=== PATIENT | male | born 1995 | race Two or more races ===

== ENCOUNTER 2021-08-27 20:44 | Emergency (ER) | payer OTHER ==
[~2021-08-27] VITALS: Ht 172.7 cm; Wt 71.2 kg
== END 2021-08-27 23:53 | disposition home or self-care (01) ==
LOC: ER 20:44
DX: B34.8 Other viral infections of unspecified site (principal)

== ENCOUNTER 2021-08-30 21:00 | Emergency (ER) | payer OTHER ==
[~2021-08-30] VITALS: Ht 182.9 cm; Wt 71.2 kg
== END 2021-08-30 22:26 | disposition home or self-care (01) ==
LOC: ER 21:00
DX: A90 Dengue fever [classical dengue] (principal); B34.9 Viral infection, unspecified; J02.9 Acute pharyngitis, unspecified; Z03.818 Encounter for observation for suspected exposure to other biological agents ruled out

== ENCOUNTER → 2021-08-30 | Emergency (ER) | payer OTHER | END | disposition left against medical advice (07) | LOC: ER 20:55 | DX: Z53.20 Procedure and treatment not carried out because of patient's decision for unspecified reasons (principal) ==

== ENCOUNTER 2022-03-25 16:53 | Emergency (ER) | payer OTHER | END 2022-03-25 21:36 | disposition home or self-care (01) | LOC: ER 16:53 | DX: H60.93 Unspecified otitis externa, bilateral (principal) ==

== ENCOUNTER → 2022-05-16 | Emergency (ER) | payer OTHER ==
[~2022-05-16] VITALS: Ht 182.9 cm; Wt 67.6 kg
== END | disposition home or self-care (01) ==
LOC: ER 11:53
DX: U07.1 COVID-19 (principal)

== ENCOUNTER 2022-12-11 15:35 | Emergency (ER) | payer OTHER ==
[~2022-12-11] VITALS: Ht 177.8 cm; Wt 71.7 kg
== END 2022-12-11 18:22 | disposition home or self-care (01) ==
LOC: ER 15:35
DX: G44.89 Other headache syndrome (principal); R09.81 Nasal congestion